=== PATIENT | female | born 1945 | race Caucasian/White ===

== ENCOUNTER 2019-07-16 09:16 | Outpatient (CLI) | payer MEDICARE ==
--- NOTE | 2019-07-16 10:02 | RAD ---
XR Thoracic Spine 3 V STANDARD History: S 22.019 a fracture of T-spine Comparison: None. Findings: Superior endplate compression deformities at what appears to be T3 and T4 with less than 30 % height loss. Chronic appearing T11 compression deformity. Ribs are intact. Impression: Healing superior endplate compression deformities at what appears to be T3 and T4 with le ss than 30% height loss.
== END 2019-07-16 09:17 | disposition home or self-care (01) ==
LOC: TBSIIMAG 09:16
PROVIDERS: ATTEND Surgery
DX: S22.019A Unspecified fracture of first thoracic vertebra, initial encounter for closed fracture (principal); S22.029A Unspecified fracture of second thoracic vertebra, initial encounter for closed fracture; S22.039A Unspecified fracture of third thoracic vertebra, initial encounter for closed fracture
CPT/HCPCS: 72072